=== PATIENT | male | born 1990 | race Caucasian/White ===

== ENCOUNTER → 2017-01-25 | Outpatient (CLI) | payer OTHER ==
--- NOTE | 2017-01-25 13:55 | DI ---
Indication: ITS.REASON: S06.0X9A CONCUSSION W LOSS OF CONSCIOUNESS PROCEDURE: MRI BRAIN W/O CONTRAST: Encounter: Initial Comparisons: None. Technique: Multiplanar, multisequence, MR imaging of the head without contrast was acquired. FINDINGS: No restricted diffusion is seen to suggest recent ischemic infarction. The normal hammond-white matter differentiation is maintained. No intra-axial or extra-axial mass or hemorrhage seen. No mass effect or midline shift. The ventricles and cerebral sulci are normal in size, shape, and configuration without evidence of hydrocephalus. The basilar cisterns are patent. Normal flow void seen within the intracranial arterial and venous structures indicating patency. The paranasal sinuses and mastoid air cells are well-aerated. The orbits and globes appear normal. IMPRESSION: Normal noncontrast brain MRI. .
== END ==
LOC: IMA 12:59
PROVIDERS: ATTEND Family Medicine Sports Medicine
DX: S06.0X9A Concussion with loss of consciousness of unspecified duration, initial encounter (principal); X58.XXXA Exposure to other specified factors, initial encounter; Y93.61 Activity, american tackle football; Y92.321 Football field as the place of occurrence of the external cause; Y99.8 Other external cause status